=== PATIENT | female | born 1960 | race African-American/Black ===

== ENCOUNTER 2024-10-14 09:24 | Emergency (ER) | payer MEDICARE, OTHER ==
[~2024-10-14] VITALS: Ht 149.9 cm; Wt 54.0 kg
[2024-10-14 09:32] VITALS: O2SAT 100
[2024-10-14 09:37] VITALS: TEMP 36.8; O2SAT 100
[2024-10-14 10:10] VITALS: BP 196/73; PULSE 79; RESP 16
[2024-10-14] MEDS: IBUPROFEN 600MG TABLET PO ONE (10:10)
[2024-10-14] MEDS ORDERED: CYCL10TA21 MT (11:02)
[2024-10-14] MEDS ORDERED: IBUP-2029 MT (11:02)
== END 2024-10-14 11:09 | disposition home or self-care (01) ==
LOC: ER 09:24
DX: M54.6 Pain in thoracic spine (principal); E11.9 Type 2 diabetes mellitus without complications; I11.0 Hypertensive heart disease with heart failure; I50.9 Heart failure, unspecified; J45.909 Unspecified asthma, uncomplicated; Z99.2 Dependence on renal dialysis; Z98.51 Tubal ligation status; Z90.89 Acquired absence of other organs; Z98.890 Other specified postprocedural states; Z79.899 Other long term (current) drug therapy; Z88.0 Allergy status to penicillin
CPT/HCPCS: 71045; 72070; 99284

== ENCOUNTER 2024-11-21 13:10 | Inpatient (IN) | payer MEDICARE, MEDICAID ==
[~2024-11-21] VITALS: Ht 149.9 cm; Wt 59.2 kg
[~2024-11-21 13:10] MED LIST: CYCL10TA21 MT; IBUP-2029 MT
[2024-11-21 14:03] LABS: BASOPHILS % 0.6 % (0.0-2.0); EOSINOPHILS % 6.1 % (0.0-5.0); HEMATOCRIT. 43.1 % (36.0-48.0); HEMOGLOBIN. 13.3 g/dL (12.0-16.0); LYMPHOCYTES % 40.3 % (20.0-50.0); MEAN PLATELET VOLUME 8.6 fl (7.4-10.4); MONOCYTES % 5.2 % (2.0-8.0); NEUTROPHILS % 47.8 % (40.0-76.0); PLATELET 188 x1000/uL (130-400); RED BLOOD CELL COUNT 4.90 mill/uL (4.2-5.4); RED CELL DISTRIBUTION WIDTH 17.9 % (11.6-14.6)
[2024-11-21 14:14] LABS: CREATININE 3.5 mg/dL (0.6-1.0); UREA NITROGEN BLOOD 31.0 mg/dL (9-23)
[2024-11-21] MEDS ORDERED: CALCIUM GLUCONATE 1,000 MG in DEXT 5% WATER 100 ML IV ONE (14:45)
[2024-11-21] MEDS: CALCIUM GLUCONATE 1GM PREMIX 50 ML IV SCH (15:53)
[2024-11-21] MEDS: SODIUM BICARBONATE 8.4% 50MEQ/50ML SYR IV ONE (16:24)
[2024-11-21] MEDS: DEXTROSE 50% WATER 50ML SYRINGE IV ONE (16:44)
[2024-11-21] MEDS: INSULIN REGULAR (HUMULIN R) 1000UNITS/10ML VIAL IV ONE (16:46)
[2024-11-21 16:47] VITALS: PULSE 67; RESP 18; O2SAT 100
[2024-11-21] MEDS: ALBUTEROL (0.083%) 2.5MG/3ML NEB HHN SCH (16:47)
[2024-11-21 20:00] VITALS: BP 180/70; PULSE 70; RESP 18; TEMP 36.4; O2SAT 100
[2024-11-21 22:33] VITALS: BP 180/70; PULSE 73; RESP 18; TEMP 36.8
[2024-11-22] VITALS (16 sets, daily range): BP systolic 92–188; BP diastolic 59–88; PULSE 56–92; RESP 16–53; TEMP 36.1–36.6; O2SAT 97–100
[2024-11-22] MEDS ORDERED: ALBU90AE INH (00:30)
[2024-11-22] MEDS ORDERED: INSU100I28 SQ (00:30)
[2024-11-22] MEDS ORDERED: GABA-529 PO (00:30)
[2024-11-22] MEDS ORDERED: LOSA25TA26 PO (00:30)
[2024-11-22] MEDS ORDERED: ZOLPIDEM TARTRATE 5MG TABLET PO PRN (00:45)
[2024-11-22] MEDS ORDERED: HYDROCODONE/ACETAMINOPHEN 5/325MG TABLET PO PRN (00:45)
[2024-11-22] MEDS ORDERED: ONDANSETRON HCL 4MG/2ML INJ IV PRN (00:45)
[2024-11-22] MEDS ORDERED: MAGNESIUM/ALUMINUM HYDROXIDE/SIMETHICONE 30ML UDC PO PRN (00:45)
[2024-11-22] MEDS ORDERED: IPRATROPIUM/ALBUTEROL 0.5-3(2.5)MG/3ML NEB NEB PRN (00:45)
[2024-11-22] MEDS: BLOOD SUGAR DIAGNOSTIC STRIP TEST SCH ×2 (00:45→07:20)
[2024-11-22] MEDS: DEXT 5%/0.45% NACL 1000ML 1,000 ML IV SCH (05:25)
[2024-11-22] MEDS: CLONIDINE 0.1MG TABLET PO PRN (05:39)
[2024-11-22 07:18] LABS: TROPONIN I HIGH SENSITIVITY 10 ng/L (3.0-34)
[2024-11-22] MEDS: PANTOPRAZOLE SODIUM 40 MG/VIAL IV SCH (09:28)
[2024-11-22] MEDS: ENOXAPARIN 30MG/0.3ML SYR SUBCUT SCH (09:29)
[2024-11-22] MEDS: INSULIN LISPRO 100 UNITS/ML SUBCUT SCH (09:30)
[2024-11-22 22:27] LABS: TROPONIN I HIGH SENSITIVITY 7 ng/L (3.0-34)
[2024-11-22 22:59] LABS: HEPATITIS A AB IGM NEGATIVE (Negative); HEPATITIS B CORE AB IGM NEGATIVE (Negative)
[2024-11-22 23:00] LABS: HEPATITIS C AB NON REACTIVE (Neg) (Negative)
[2024-11-22] MEDS: ACETAMINOPHEN 325MG TABLET PO PRN (23:23)
[2024-11-23] VITALS: BP 147/76; PULSE 59; RESP 18; TEMP 36.4; O2SAT 96
[2024-11-23 00:54] LABS: TRIGLYCERIDE 52.0 mg/dL (0-150)
[2024-11-23 00:56] LABS: LDL CHOLESTEROL 71.0 mg/dL (5-100)
[2024-11-23] MEDS ORDERED: METO25TA6 PO (07:06)
[2024-11-23] MEDS ORDERED: AMLO10TA80 PO (07:06)
[2024-11-23 08:00] VITALS: BP 172/63; PULSE 71; RESP 18; TEMP 35.8; O2SAT 99
[2024-11-23 10:51] LABS: CLARITY URINE TURBID (CLEAR); COLOR URINE YELLOW (YELLOW); GLUCOSE URINE 2+ (NEGATIVE); KETONES URINE TRACE (NEGATIVE); LEUKOCYTE ESTERASE URINE 3+ (NEGATIVE); NITRITE URINE POSITIVE (NEGATIVE); OCCULT BLOOD URINE 1+ (NEGATIVE); PH URINE 7.0 (4.5-8.0); PROTEIN URINE 3+ (NEGATIVE); SPECIFIC GRAVITY URINE 1.015 (1.005-1.030); UROBILINOGEN URINE 0.2 E.U./dL (0.2-1.0)
[2024-11-23 11:08] LABS: SQUAMOUS EPITHELIAL CELL URINE 2+ /lpf (RARE/1+)
[2024-11-23 11:09] LABS: WBC URINE TNTC /hpf (0-2)
[2024-11-23 11:10] LABS: BACTERIA URINE 4+
[2024-11-23 11:21] LABS: *AMPHETAMINES SCREEN URINE NEGATIVE (NEGATIVE); *BARBITURATES SCREEN URINE NEGATIVE (NEGATIVE); *BENZODIAZEPINES SCREEN URINE NEGATIVE (NEGATIVE); *COCAINE SCREEN URINE NEGATIVE (NEGATIVE); METHADONE URINE SCREEN NEGATIVE (NEGATIVE)
[2024-11-23 11:22] LABS: CANNABINOID URINE SCREEN NEGATIVE (NEGATIVE); ECSTASY MDMA SCREEN URINE NEGATIVE (NEGATIVE); OPIATES URINE SCREEN NEGATIVE (NEGATIVE); PHENCYCLIDINE URINE SCREEN NEGATIVE (NEGATIVE)
[2024-11-23 12:00] VITALS: BP 111/50; PULSE 63; RESP 16; TEMP 35.9; O2SAT 99
[2024-11-23] MEDS: CEFTRIAXONE 1GM/50ML 50 ML IV SCH (12:28)
[2024-11-23] MEDS ORDERED: NALOXONE HCL 0.4MG/ML VIAL IV PRN (12:30)
[2024-11-23 16:00] VITALS: BP 158/69; PULSE 63; RESP 17; TEMP 35.8; O2SAT 100
[2024-11-23 17:07] LABS: BASOPHILS % 0.8 % (0.0-2.0); EOSINOPHILS % 6.9 % (0.0-5.0); HEMATOCRIT. 42.1 % (36.0-48.0); HEMOGLOBIN. 12.7 g/dL (12.0-16.0); LYMPHOCYTES % 41.9 % (20.0-50.0); MEAN PLATELET VOLUME 9.6 fl (7.4-10.4); MONOCYTES % 3.5 % (2.0-8.0); NEUTROPHILS % 46.9 % (40.0-76.0); PLATELET 170 x1000/uL (130-400); RED BLOOD CELL COUNT 4.72 mill/uL (4.2-5.4); RED CELL DISTRIBUTION WIDTH 18.1 % (11.6-14.6)
[2024-11-23 17:20] LABS: CREATININE 3.0 mg/dL (0.6-1.0); UREA NITROGEN BLOOD 17.0 mg/dL (9-23)
[2024-11-23 20:00] VITALS: BP 134/46; PULSE 68; RESP 18; TEMP 37.1; O2SAT 99
[2024-11-23] MEDS: INSULIN LISPRO 100 UNITS/ML SUBCUT SCH (21:45)
[2024-11-23] MEDS: INSULIN GLARGINE 100 UNITS/ML SUBCUT SCH (21:57)
[2024-11-24] VITALS (14 sets, daily range): BP systolic 111–190; BP diastolic 61–92; PULSE 61–90; RESP 16–18; TEMP 36.1–37; O2SAT 99–100
[2024-11-24] MEDS: SODIUM CHLORIDE 0.9% 1,000 ML IV SCH (01:25)
[2024-11-24 18:21] LABS: BASOPHILS % 0.8 % (0.0-2.0); EOSINOPHILS % 8.5 % (0.0-5.0); HEMATOCRIT. 33.7 % (36.0-48.0); HEMOGLOBIN. 10.8 g/dL (12.0-16.0); LYMPHOCYTES % 36.5 % (20.0-50.0); MEAN PLATELET VOLUME 9.5 fl (7.4-10.4); MONOCYTES % 4.5 % (2.0-8.0); NEUTROPHILS % 49.7 % (40.0-76.0); PLATELET 167 x1000/uL (130-400); RED BLOOD CELL COUNT 3.90 mill/uL (4.2-5.4); RED CELL DISTRIBUTION WIDTH 16.9 % (11.6-14.6)
[2024-11-24 18:42] LABS: CREATININE 2.9 mg/dL (0.6-1.0); UREA NITROGEN BLOOD 23.0 mg/dL (9-23)
[2024-11-25] VITALS: BP 130/80; PULSE 68; RESP 17; TEMP 36.4; O2SAT 98
[2024-11-25 04:00] VITALS: BP 110/70; PULSE 63; RESP 18; TEMP 36.6; O2SAT 100
[2024-11-25 08:00] VITALS: BP 166/84; PULSE 64; RESP 18; TEMP 36.3; O2SAT 100
[2024-11-25 12:00] VITALS: BP 133/71; PULSE 68; RESP 16; TEMP 36.5; O2SAT 100
[2024-11-25] MEDS: INSULIN LISPRO 100 UNITS/ML SUBCUT NR (15:47)
[2024-11-25 16:00] VITALS: BP 155/98; PULSE 101; RESP 18; TEMP 36.3; O2SAT 100; O2SAT 99
[2024-11-25 17:06] LABS: BASOPHILS % 0.4 % (0.0-2.0); EOSINOPHILS % 5.2 % (0.0-5.0); HEMATOCRIT. 41.7 % (36.0-48.0); HEMOGLOBIN. 13.0 g/dL (12.0-16.0); LYMPHOCYTES % 21.9 % (20.0-50.0); MEAN PLATELET VOLUME 9.7 fl (7.4-10.4); MONOCYTES % 2.6 % (2.0-8.0); NEUTROPHILS % 69.9 % (40.0-76.0); PLATELET 178 x1000/uL (130-400); RED BLOOD CELL COUNT 4.77 mill/uL (4.2-5.4); RED CELL DISTRIBUTION WIDTH 17.3 % (11.6-14.6)
[2024-11-25] MEDS: INSULIN LISPRO 100 UNITS/ML SUBCUT SCH (17:20)
[2024-11-25 17:26] LABS: CREATININE 3.0 mg/dL (0.6-1.0); UREA NITROGEN BLOOD 18 mg/dL (9-23)
[2024-11-25 17:28] LABS: ASPARTATE AMINOTRANSFERASE 18 IU/L (<34); BILIRUBIN TOTAL 0.4 mg/dL (0.1-1.0); PROTEIN TOTAL 7.7 g/dL (6.0-8.3)
[2024-11-25 20:00] VITALS: BP 104/62; PULSE 80; RESP 20; TEMP 36.6; O2SAT 100
[2024-11-25] MEDS: DEXTROSE 50% WATER 50ML SYRINGE IV PRN (20:09)
[2024-11-25] MEDS: INSULIN GLARGINE 100 UNITS/ML SUBCUT SCH (21:28)
[2024-11-26] VITALS (7 sets, daily range): BP systolic 112–193; BP diastolic 47–105; PULSE 69–101; RESP 16–22; TEMP 35.9–36.6; O2SAT 96–100
[2024-11-27] VITALS (13 sets, daily range): BP systolic 125–172; BP diastolic 65–83; PULSE 70–93; RESP 13–19; TEMP 35.7–36.7; O2SAT 94–100
[2024-11-28] VITALS: BP 117/45; PULSE 73; RESP 17; TEMP 36.6; O2SAT 100
[2024-11-28 04:44] VITALS: BP 156/85; PULSE 79; RESP 19; TEMP 36.6; O2SAT 100
[2024-11-28 08:00] VITALS: BP 144/81; PULSE 75; RESP 20; TEMP 36.7; O2SAT 98
[2024-11-28 11:23] VITALS: BP 149/55; PULSE 81; TEMP 97.8
== END 2024-11-28 12:24 | disposition home or self-care (01) | DRG 640 ==
LOC: ER 13:10 → ENRESERV 17:16 → 6WST 17:40
PROVIDERS: ADMIT Internal Medicine; ATTEND Internal Medicine
PROC: 5A1D70Z Performance of Urinary Filtration, Intermittent, Less than 6 Hours Per Day (ICD-10-PCS; 2024-11-20)
PROC: 5A1D70Z Performance of Urinary Filtration, Intermittent, Less than 6 Hours Per Day (ICD-10-PCS; principal; 2024-11-24)
PROC: 5A1D70Z Performance of Urinary Filtration, Intermittent, Less than 6 Hours Per Day (ICD-10-PCS; 2024-11-27)
DX: E87.5 Hyperkalemia (principal); N18.6 End stage renal disease; I13.2 Hypertensive heart and chronic kidney disease with heart failure and with stage 5 chronic kidney disease, or end stage renal disease; N39.0 Urinary tract infection, site not specified; J45.909 Unspecified asthma, uncomplicated; I16.0 Hypertensive urgency; E11.22 Type 2 diabetes mellitus with diabetic chronic kidney disease; I50.9 Heart failure, unspecified; D64.9 Anemia, unspecified; E11.65 Type 2 diabetes mellitus with hyperglycemia; Z88.0 Allergy status to penicillin; Z88.8 Allergy status to other drugs, medicaments and biological substances; Z98.891 History of uterine scar from previous surgery; Z99.2 Dependence on renal dialysis; Z79.4 Long term (current) use of insulin
CPT/HCPCS: 36415; 71045; 80048; 80053; 80061; 80305; 81003; 82962; 83036; 84132; 84484; 85025; 86705; 86706; 86709; 87340; 90935; 93005; 93970; 94070; 94640; 99285; A4606; G0378; J0610; J0696; J1650; J1815; J2470; J3490; J7060

== ENCOUNTER 2025-02-02 11:03 | Inpatient (IN) | payer MEDICARE, MEDICAID ==
[~2025-02-02] VITALS: Ht 165.1 cm; Wt 54.9 kg
[2025-02-02] VITALS (11 sets, daily range): BP systolic 104–203; BP diastolic 71–134; PULSE 81–89; RESP 15–18; TEMP 36.72516–37; O2SAT 98–100
[~2025-02-02 11:03] MED LIST changes: +ALBU90AE INH; +AMLO10TA80 PO; +GABA-529 PO; +IBUP-1455 MT; -IBUP-2029 MT; +INSU100I28 SQ; +LOSA25TA26 PO; +METO25TA6 PO
[2025-02-02 11:36] LABS: BASOPHILS % 0.3 % (0.0-2.0); EOSINOPHILS % 1.5 % (0.0-5.0); HEMATOCRIT. 37.1 % (36.0-48.0); HEMOGLOBIN. 11.4 g/dL (12.0-16.0); LYMPHOCYTES % 17.7 % (20.0-50.0); MEAN PLATELET VOLUME 9.5 fl (7.4-10.4); MONOCYTES % 2.8 % (2.0-8.0); NEUTROPHILS % 77.7 % (40.0-76.0); PLATELET 158 x1000/uL (130-400); RED BLOOD CELL COUNT 4.13 mill/uL (4.2-5.4); RED CELL DISTRIBUTION WIDTH 20.0 % (11.6-14.6)
[2025-02-02 11:50] LABS: ETHANOL BLOOD 35 mg/dL (<10); UREA NITROGEN BLOOD 31 mg/dL (9-23)
[2025-02-02 11:51] LABS: TROPONIN I HIGH SENSITIVITY 15 ng/L (3.0-34)
[2025-02-02 11:52] LABS: ASPARTATE AMINOTRANSFERASE 15 IU/L (<34); BILIRUBIN DIRECT 0.1 mg/dL (<=3.0); BILIRUBIN TOTAL 0.4 mg/dL (0.1-1.0); PROTEIN TOTAL 6.8 g/dL (6.0-8.3)
[2025-02-02 12:08] LABS: CREATININE 4.5 mg/dL (0.6-1.0)
[2025-02-02] MEDS: INSULIN REGULAR (HUMULIN R) 1000UNITS/10ML VIAL SUBCUT ONE (13:17)
[2025-02-02 16:05] LABS: HEPATITIS A AB IGM NEGATIVE (Negative); HEPATITIS B CORE AB IGM NEGATIVE (Negative)
[2025-02-02 16:06] LABS: HEPATITIS C AB NON REACTIVE (Neg) (Negative)
[2025-02-02] MEDS ORDERED: HYDROCODONE/ACETAMINOPHEN 5/325MG TABLET PO PRN (16:45)
[2025-02-02] MEDS: AMLODIPINE 10MG TABLET PO SCH (16:45)
[2025-02-02] MEDS ORDERED: IPRATROPIUM/ALBUTEROL 0.5-3(2.5)MG/3ML NEB HHN PRN (16:45)
[2025-02-02] MEDS: LOSARTAN 25 MG TABLET PO SCH (16:45)
[2025-02-02] MEDS ORDERED: ACETAMINOPHEN 325MG TABLET PO PRN (16:45)
[2025-02-02] MEDS: GABAPENTIN 100MG CAPSULE PO SCH (16:45)
[2025-02-02] MEDS: METOPROLOL TARTRATE 25MG TABLET PO SCH (16:45)
[2025-02-02] MEDS ORDERED: ENOXAPARIN 40MG/0.4ML SYR SUBCUT SCH (16:45)
[2025-02-02] MEDS: ENOXAPARIN 30MG/0.3ML SYR SUBCUT SCH (17:00)
[2025-02-02] MEDS: PNEUMOCOCCAL 20-VAL CONJ-DIP CRM 0.5ML IM ONE (21:00)
[2025-02-02] MEDS: ONDANSETRON HCL 4MG/2ML INJ IV PRN (22:35)
[2025-02-03] VITALS (12 sets, daily range): BP systolic 97–169; BP diastolic 34–67; PULSE 72–83; RESP 16–19; TEMP 36.1–37.4; O2SAT 92–100
[2025-02-03] MEDS ORDERED: INSULIN REGULAR (HUMULIN R) 1000UNITS/10ML VIAL SUBCUT NR (06:00)
[2025-02-03] MEDS: INSULIN LISPRO 100 UNITS/ML SUBCUT NR (06:08)
[2025-02-03] MEDS ORDERED: INSULIN LISPRO 100 UNITS/ML SUBCUT ONE (06:15)
[2025-02-03] MEDS: BLOOD SUGAR DIAGNOSTIC STRIP TEST SCH (06:45)
[2025-02-03 06:56] LABS: BASOPHILS % 0.4 % (0.0-2.0); EOSINOPHILS % 0.3 % (0.0-5.0); HEMATOCRIT. 36.5 % (36.0-48.0); HEMOGLOBIN. 11.0 g/dL (12.0-16.0); LYMPHOCYTES % 19.7 % (20.0-50.0); MEAN PLATELET VOLUME 10.6 fl (7.4-10.4); MONOCYTES % 4.9 % (2.0-8.0); NEUTROPHILS % 74.7 % (40.0-76.0); PLATELET 145 x1000/uL (130-400); RED BLOOD CELL COUNT 3.91 mill/uL (4.2-5.4); RED CELL DISTRIBUTION WIDTH 19.8 % (11.6-14.6)
[2025-02-03 07:17] LABS: UREA NITROGEN BLOOD 19 mg/dL (9-23)
[2025-02-03 07:19] LABS: CREATININE 3.4 mg/dL (0.6-1.0)
[2025-02-03 07:21] LABS: ASPARTATE AMINOTRANSFERASE 15 IU/L (<34); BILIRUBIN DIRECT 0.2 mg/dL (<=3.0); PHOSPHORUS 4.1 mg/dL (2.5-4.9)
[2025-02-03 07:22] LABS: BILIRUBIN TOTAL 0.8 mg/dL (0.1-1.0); PROTEIN TOTAL 7.0 g/dL (6.0-8.3)
[2025-02-03] MEDS: INSULIN LISPRO 100 UNITS/ML SUBCUT SCH (10:40)
[2025-02-03] MEDS: INSULIN GLARGINE 100 UNITS/ML SUBCUT SCH (10:49)
[2025-02-04] VITALS: BP 121/45; PULSE 65; RESP 18; TEMP 36.3; O2SAT 90
[2025-02-04 08:00] VITALS: BP 121/46; PULSE 66; RESP 17; TEMP 36.4; O2SAT 100
[2025-02-04 16:15] LABS: BASOPHILS % 0.8 % (0.0-2.0); EOSINOPHILS % 4.1 % (0.0-5.0); HEMATOCRIT. 39.7 % (36.0-48.0); HEMOGLOBIN. 12.2 g/dL (12.0-16.0); LYMPHOCYTES % 39.1 % (20.0-50.0); MEAN PLATELET VOLUME 9.7 fl (7.4-10.4); MONOCYTES % 6.8 % (2.0-8.0); NEUTROPHILS % 49.2 % (40.0-76.0); PLATELET 169 x1000/uL (130-400); RED BLOOD CELL COUNT 4.34 mill/uL (4.2-5.4); RED CELL DISTRIBUTION WIDTH 20.3 % (11.6-14.6)
[2025-02-04 16:30] LABS: CREATININE 3.9 mg/dL (0.6-1.0); UREA NITROGEN BLOOD 16 mg/dL (9-23)
[2025-02-04 16:32] LABS: PHOSPHORUS 3.3 mg/dL (2.5-4.9)
[2025-02-04 20:00] VITALS: BP 127/51; PULSE 69; RESP 16; TEMP 36.6; O2SAT 99
[2025-02-05] VITALS (15 sets, daily range): BP systolic 111–151; BP diastolic 6–78; PULSE 64–81; RESP 16–19; TEMP 36.3–36.8; O2SAT 97–100
[2025-02-05] MEDS: DEXTROSE 50% WATER 50ML SYRINGE IV PRN (04:44)
[2025-02-05 08:12] LABS: BASOPHILS % 0.6 % (0.0-2.0); EOSINOPHILS % 3.3 % (0.0-5.0); HEMATOCRIT. 36.2 % (36.0-48.0); HEMOGLOBIN. 11.4 g/dL (12.0-16.0); LYMPHOCYTES % 23.2 % (20.0-50.0); MEAN PLATELET VOLUME 9.7 fl (7.4-10.4); MONOCYTES % 9.1 % (2.0-8.0); NEUTROPHILS % 63.8 % (40.0-76.0); PLATELET 142 x1000/uL (130-400); RED BLOOD CELL COUNT 4.01 mill/uL (4.2-5.4); RED CELL DISTRIBUTION WIDTH 20.0 % (11.6-14.6)
[2025-02-05 08:20] LABS: CREATININE 3.7 mg/dL (0.6-1.0)
[2025-02-05 08:21] LABS: UREA NITROGEN BLOOD 18 mg/dL (9-23)
[2025-02-05 08:22] LABS: ASPARTATE AMINOTRANSFERASE 15 IU/L (<34)
[2025-02-05 08:23] LABS: BILIRUBIN TOTAL 0.4 mg/dL (0.1-1.0); PHOSPHORUS 4.6 mg/dL (2.5-4.9); PROTEIN TOTAL 5.7 g/dL (6.0-8.3)
[2025-02-05 09:14] LABS: CLARITY URINE CLOUDY (CLEAR); COLOR URINE YELLOW (YELLOW); GLUCOSE URINE TRACE (NEGATIVE); KETONES URINE TRACE (NEGATIVE); LEUKOCYTE ESTERASE URINE 3+ (NEGATIVE); NITRITE URINE NEGATIVE (NEGATIVE); OCCULT BLOOD URINE NEGATIVE (NEGATIVE); PH URINE 5.5 (4.5-8.0); PROTEIN URINE 2+ (NEGATIVE); SPECIFIC GRAVITY URINE 1.017 (1.005-1.030); UROBILINOGEN URINE 0.2 E.U./dL (0.2-1.0)
[2025-02-05 09:41] LABS: BACTERIA URINE 3+; RBC URINE 0-2 /hpf (0-2); SQUAMOUS EPITHELIAL CELL URINE 3+ /lpf (RARE/1+); WBC URINE 50-100 /hpf (0-2); YEAST URINE NONE SEEN
[2025-02-05 10:04] LABS: *AMPHETAMINES SCREEN URINE NEGATIVE (NEGATIVE); *BENZODIAZEPINES SCREEN URINE NEGATIVE (NEGATIVE)
[2025-02-05 10:05] LABS: *BARBITURATES SCREEN URINE NEGATIVE (NEGATIVE); *COCAINE SCREEN URINE NEGATIVE (NEGATIVE); CANNABINOID URINE SCREEN NEGATIVE (NEGATIVE); ECSTASY MDMA SCREEN URINE NEGATIVE (NEGATIVE); METHADONE URINE SCREEN NEGATIVE (NEGATIVE); OPIATES URINE SCREEN NEGATIVE (NEGATIVE); PHENCYCLIDINE URINE SCREEN NEGATIVE (NEGATIVE)
[2025-02-05] MEDS: INSULIN LISPRO 100 UNITS/ML SUBCUT NR (12:00)
[2025-02-05] MEDS ORDERED: INSU100I28 SQ (15:56)
== END 2025-02-05 21:30 | disposition home or self-care (01) | DRG 640 ==
LOC: ER 11:03 → 5WST 13:43 → ENRESERV 14:12 → 5WST 15:46
PROVIDERS: ADMIT Internal Medicine; ATTEND Internal Medicine
PROC: 5A1D70Z Performance of Urinary Filtration, Intermittent, Less than 6 Hours Per Day (ICD-10-PCS; principal; 2025-02-02)
PROC: 5A1D70Z Performance of Urinary Filtration, Intermittent, Less than 6 Hours Per Day (ICD-10-PCS; 2025-02-03)
PROC: 5A1D70Z Performance of Urinary Filtration, Intermittent, Less than 6 Hours Per Day (ICD-10-PCS; 2025-02-05)
DX: E87.70 Fluid overload, unspecified (principal); N18.6 End stage renal disease; I13.2 Hypertensive heart and chronic kidney disease with heart failure and with stage 5 chronic kidney disease, or end stage renal disease; E11.65 Type 2 diabetes mellitus with hyperglycemia; I16.0 Hypertensive urgency; E87.20 Acidosis, unspecified; E11.22 Type 2 diabetes mellitus with diabetic chronic kidney disease; D64.9 Anemia, unspecified; E78.5 Hyperlipidemia, unspecified; I50.9 Heart failure, unspecified; J45.909 Unspecified asthma, uncomplicated; F10.10 Alcohol abuse, uncomplicated; Z91.158 Patient's noncompliance with renal dialysis for other reason; Z99.2 Dependence on renal dialysis; Z88.0 Allergy status to penicillin; Z88.8 Allergy status to other drugs, medicaments and biological substances; Z79.899 Other long term (current) drug therapy; Z83.3 Family history of diabetes mellitus; Z82.49 Family history of ischemic heart disease and other diseases of the circulatory system
CPT/HCPCS: 36415; 71045; 80048; 80053; 80076; 80305; 80320; 81003; 82962; 83036; 83735; 84100; 84484; 85025; 86705; 86709; 87340; 90732; 90935; 93005; 99285; A4606; J1650; J1815; J2405; G0480